=== PATIENT | female | born 1995 | race Two or more races ===

== ENCOUNTER 2022-05-07 07:44 | Emergency (ER) | payer BC, OTHER ==
[~2022-05-07] VITALS: Ht 167.6 cm; Wt 65.8 kg
--- NOTE | 2022-05-07 07:52 | NUR ---
PT WALKED INTO ER C/O COUGH AND SORE THROAT FOR 2 WEEKS "GOT WORSE 2 DAYS AGO". PT DENIES FEVER OR CHILLS. DENIES CP AND SOB. AMBULATED TO BED WITH STEADY GAIT. AWAITING MD ORDERS.
--- NOTE | 2022-05-07 07:55 | NUR ---
PS AT BEDSIDE FOR EVAL
--- NOTE | 2022-05-07 08:02 | NUR ---
DR. AVILES AT BEDSIDE FOR EVAL
--- NOTE | 2022-05-07 08:10 | NUR ---
Patient discharged to home in stable condition. Written and verbal after care instructions given. Patient verbalizes understanding of instruction.
[2022-05-07 08:12] VITALS: BP 138/78
== END 2022-05-07 08:12 | disposition home or self-care (01) ==
LOC: ER 07:49
DX: J02.9 Acute pharyngitis, unspecified (principal)